=== PATIENT | male | born 1990 | race Caucasian/White ===

== ENCOUNTER 2018-02-16 19:00 | Emergency (ER) | payer MEDICAID ==
[~2018-02-16] VITALS: Ht 182.9 cm; Wt 69.3 kg
[2018-02-16 19:03] VITALS: BP 136/92
== END 2018-02-16 20:51 | disposition home or self-care (01) ==
LOC: ED 20:15
DX: S42.202A Unspecified fracture of upper end of left humerus, initial encounter for closed fracture (principal); F17.200 Nicotine dependence, unspecified, uncomplicated; V00.131A Fall from skateboard, initial encounter; Y93.51 Activity, roller skating (inline) and skateboarding; Y92.89 Other specified places as the place of occurrence of the external cause; Y99.8 Other external cause status
CPT/HCPCS: 29105; 99284

== ENCOUNTER 2018-02-19 13:32 | Emergency (ER) | payer MEDICAID ==
[~2018-02-19] VITALS: Ht 182.9 cm; Wt 70.0 kg
[2018-02-19 13:36] VITALS: BP 142/88
[2018-02-19] MEDS ORDERED: HYDR-3240 PO (14:37)
== END 2018-02-19 14:55 | disposition home or self-care (01) ==
LOC: ED 14:50
DX: S42.402D Unspecified fracture of lower end of left humerus, subsequent encounter for fracture with routine healing (principal); V00.131D Fall from skateboard, subsequent encounter
CPT/HCPCS: 99281

== ENCOUNTER 2019-02-09 23:54 | Emergency (ER) | payer MEDICAID ==
[~2019-02-09] VITALS: Ht 182.9 cm; Wt 73.0 kg
[~2019-02-09 23:54] MED LIST: HYDR-3240 PO
[2019-02-09 23:57] VITALS: BP 130/90
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
[2019-02-10] MEDS ORDERED: HYDR10TA4 PO (00:07)
== END 2019-02-10 01:09 | disposition home or self-care (01) ==
LOC: ED 02-10 00:06
DX: S50.812A Abrasion of left forearm, initial encounter (principal); F10.120 Alcohol abuse with intoxication, uncomplicated; F17.200 Nicotine dependence, unspecified, uncomplicated; F32.9 Major depressive disorder, single episode, unspecified; F41.9 Anxiety disorder, unspecified; X83.8XXA Intentional self-harm by other specified means, initial encounter; Y93.89 Activity, other specified; Y92.89 Other specified places as the place of occurrence of the external cause; Y99.8 Other external cause status
CPT/HCPCS: 99283

== ENCOUNTER 2019-03-31 22:46 | Inpatient (IN) | payer MEDICAID ==
[~2019-03-31] VITALS: Ht 182.9 cm; Wt 78.9 kg
[~2019-03-31 22:46] MED LIST changes: +HYDR10TA4 PO
[2019-03-31] MEDS ORDERED: SODIUM CHLORIDE FLUSH 10ML SYR IVF ONE (23:00)
--- NOTE | 2019-03-31 23:04 | NUR ---
DR WINSTON CHECKED RT ARM LACERATION WITH ARTERIAL BLEEDING TOURNIQUET WAS APPLIED VSS STABLE PT IS STILL AAOX4 ABLE TO ANSWER EXPLAINED WHAT HAPPENED TONIGHT DR WINSTON CALLED VASCULAR SURGEON
[2019-03-31] MEDS ORDERED: CEFAZOLIN PMX 1GM/50ML 50 ML ONE (23:10)
[2019-03-31] MEDS ORDERED: DIPH,PERTUSS(ACELL),TET VAC/PF 0.5 ML IM-VACC ONE ×2 (23:11→23:30)
[2019-03-31 23:12] LABS: BASOPHILS # (AUTO) 0.05 x10^3/uL (0-0.1); BASOPHILS % (AUTO) 0 % (0-1); EOSINOPHILS # (AUTO) 0.66 x10^3/uL (0-0.4); EOSINOPHILS % (AUTO) 5 % (1-7); LYMPHOCYTES # (AUTO) 4.12 x10^3/uL (1-3.4); LYMPHOCYTES % (AUTO) 28 % (22-44); MD NO; MEAN CORPUSCULAR HGB CONC 34.1 g/dL (33.2-36.2); MEAN CORPUSCULAR VOLUME 93.9 fL (81-97); MONOCYTES # (AUTO) 0.89 x10^3/uL (0.2-0.8); MONOCYTES % (AUTO) 6 % (2-9); NEUTROPHILS # (AUTO) 8.91 x10^3/uL (1.8-6.8); NEUTROPHILS % (AUTO) 61 % (42-75); PLATELET COUNT 391 x10^3/uL (130-400); RED BLOOD COUNT 5.22 x10^6/uL (4.38-5.82); RED CELL DISTRIBUTION WIDTH 12.9 % (9.4-14.8)
--- NOTE | 2019-03-31 23:19 | NUR ---
GIVEN TDAP AND LITER OF BOLUS PER MD PT IS STILL AWAKE VSS INTACT
[2019-03-31 23:25] LABS: ANION GAP 11 mmol/L (5-15); CALCIUM 8.3 mg/dL (8.5-10.1); CHLORIDE 108 mmol/L (98-107)
[2019-03-31 23:26] LABS: CREATININE 1.13 mg/dL (0.7-1.3)
[2019-03-31] MEDS ORDERED: CEFAZOLIN PMX 1GM/50ML 50 ML IVPB ONE (23:30)
[2019-03-31] MEDS ORDERED: CEFAZOLIN 2,000 MG in SODIUM CHLORIDE 0.9% 50 ML IV ONE (23:30)
[2019-03-31] MEDS ORDERED: SODIUM CHLORIDE 0.9% 1,000ML IVBOLUS ONE (23:30)
[2019-04-01] MEDS ORDERED: hydrALAzine 20 MG/ML, 1ML IVPush PRN
[2019-04-01] MEDS ORDERED: THROMBIN 20,000 UNIT VIAL TP ONE (00:03)
--- NOTE | 2019-04-01 00:04 | NUR ---
DR BERNARD SURGEON WAS IN ASSESSED PT'S WOUND SITES. OBTAINED CONSENT BY 2 PERSONS SIGN D/T PT'S VERBAL AGREEMENT D/T PT WAS UNABLE TO HOLD PEN GIVEN IV ABX BEFORE TRANSFER PT TO OR GIVEN REPORT TO [facility] ACCOUNT EXECUTIVERASHAUN LINARES WAS INTACT TIME FOR TRNASFER
[2019-04-01] MEDS ORDERED: FENTANYL PF 250 MCG/5ML ONE (00:24)
[2019-04-01] MEDS ORDERED: MIDAZOLAM 1 MG/ML, 2ML ONE (00:24)
[2019-04-01] MEDS ORDERED: MEPERIDINE/PF 25MG/0.5ML IVPush PRN (01:00)
[2019-04-01] MEDS ORDERED: LABETALOL 5MG/ML, 20ML IV PRN (01:00)
[2019-04-01] MEDS ORDERED: ONDANSETRON 2MG/ML, 2ML IV PRN (01:00)
[2019-04-01] MEDS ORDERED: MORPHINE SULFATE 4 MG/ML, 1ML IVPush PRN (01:00)
[2019-04-01] MEDS ORDERED: FENTANYL PF 100 MCG/2ML IV PRN (01:00)
[2019-04-01] MEDS ORDERED: PROMETHAZINE 12.5 MG SUPP PR PRN (01:00)
[2019-04-01] MEDS ORDERED: hydrALAzine 20 MG/ML, 1ML IV PRN (01:00)
[2019-04-01] MEDS ORDERED: OXYcodone 5 MG/5 ML ORAL.SOL UDC PO PRN (01:00)
[2019-04-01] MEDS ORDERED: ONDANSETRON ODT 8 MG PO PRN (01:00)
[2019-04-01] MEDS ORDERED: PROMETHAZINE 25 MG/ML, 1ML IM PRN ×2 (01:00)
[2019-04-01] MEDS ORDERED: PROMETHAZINE 25 MG SUPP PR PRN (01:00)
[2019-04-01] MEDS ORDERED: HYDROmorphone 2 MG/ML, 1ML IVPush PRN (01:00)
[2019-04-01] MEDS ORDERED: PROMETHAZINE 25 MG/ML, 1ML IV PRN (01:00)
[2019-04-01] MEDS ORDERED: BACITRACIN OINT 500U/GM, 15 GM ONE (02:00)
[2019-04-01] MEDS ORDERED: BACITRACIN ZINC OINT 500U/GM, 0.9 GM TP ONE (02:08)
[2019-04-01] MEDS ORDERED: GLYCOPYRROLATE 0.2MG/1ML, 5ML ONE (02:09)
[2019-04-01] MEDS ORDERED: CEFAZOLIN 1,000 MG ONE (02:09)
[2019-04-01] MEDS ORDERED: SUCCINYLCHOLINE 20 MG/ML, 10ML ONE (02:09)
[2019-04-01] MEDS ORDERED: NEOSTIGMINE 1 MG/ML, 10ML ONE (02:09)
[2019-04-01] MEDS ORDERED: PROPOFOL 10 MG/ML, 20ML ONE (02:09)
[2019-04-01] MEDS ORDERED: FENTANYL PF 100 MCG/2ML ONE (02:23)
[2019-04-01] MEDS ORDERED: OXYcodone 5 MG/5 ML ORAL.SOL UDC ONE (02:24)
[2019-04-01] MEDS ORDERED: LORazepam 2 MG/ML, 1ML ONE (02:44)
[2019-04-01] MEDS ORDERED: LORazepam 2 MG/ML, 1ML IVPush PRN (03:00)
[2019-04-01] MEDS: morphine SULFATE 10 MG/ML, 1ML IVPush PRN ×3 (03:49→21:57)
[2019-04-01] MEDS: LORazepam 1MG TABLET PO PRN (04:04)
[2019-04-01] MEDS: SODIUM CHLORIDE 0.9% 1,000 ML IV SCH ×2 (04:07→14:35)
[2019-04-01 04:13] VITALS: BP 140/97
[2019-04-01 06:35] VITALS: BP 133/80
[2019-04-01 07:25] LABS: ALANINE AMINOTRANSFERASE 20 U/L (12-78); ALBUMIN 3.1 g/dL (3.4-5.0); ANION GAP 6 mmol/L (5-15); CALCIUM 7.3 mg/dL (8.5-10.1); CHLORIDE 109 mmol/L (98-107); CREATININE 0.62 mg/dL (0.7-1.3)
[2019-04-01 07:28] LABS: ALKALINE PHOSPHATASE 79 U/L (45-117); BILIRUBIN,TOTAL 0.7 mg/dL (0.2-1.0); TOTAL PROTEIN 5.4 g/dL (6.4-8.2)
[2019-04-01 07:33] LABS: BASOPHILS # (AUTO) 0.12 x10^3/uL (0-0.1); BASOPHILS % (AUTO) 1 % (0-1); EOSINOPHILS # (AUTO) 0.19 x10^3/uL (0-0.4); EOSINOPHILS % (AUTO) 1 % (1-7); LYMPHOCYTES # (AUTO) 2.98 x10^3/uL (1-3.4); LYMPHOCYTES % (AUTO) 21 % (22-44); MD NO; MEAN CORPUSCULAR HEMOGLOBIN 31.3 pg (27.5-34.5); MEAN CORPUSCULAR HGB CONC 33.5 g/dL (33.2-36.2); MEAN CORPUSCULAR VOLUME 93.7 fL (81-97); MEAN PLATELET VOLUME 6.9 fL (7.4-10.4); MONOCYTES # (AUTO) 0.91 x10^3/uL (0.2-0.8); MONOCYTES % (AUTO) 6 % (2-9); NEUTROPHILS # (AUTO) 10.22 x10^3/uL (1.8-6.8); NEUTROPHILS % (AUTO) 71 % (42-75); PLATELET COUNT 295 x10^3/uL (130-400); RED CELL DISTRIBUTION WIDTH 13.1 % (9.4-14.8)
[2019-04-01 13:10] VITALS: BP 138/89
[2019-04-01 20:11] VITALS: BP 143/94
[2019-04-02] MEDS: SODIUM CHLORIDE 0.9% 1,000 ML IV SCH ×2 (00:18→10:26)
[2019-04-02] MEDS: LORazepam 1MG TABLET PO PRN (00:18)
[2019-04-02 01:58] VITALS: BP 139/91
[2019-04-02] MEDS: morphine SULFATE 10 MG/ML, 1ML IVPush PRN (05:02)
[2019-04-02 05:53] LABS: CALCIUM 7.7 mg/dL (8.5-10.1); CHLORIDE 107 mmol/L (98-107)
[2019-04-02 05:54] LABS: BASOPHILS # (AUTO) 0.12 x10^3/uL (0-0.1); BASOPHILS % (AUTO) 1 % (0-1); EOSINOPHILS % (AUTO) 5 % (1-7); LYMPHOCYTES # (AUTO) 2.43 x10^3/uL (1-3.4); LYMPHOCYTES % (AUTO) 22 % (22-44); MD NO; MEAN CORPUSCULAR HGB CONC 33.9 g/dL (33.2-36.2); MEAN CORPUSCULAR VOLUME 94.4 fL (81-97); MEAN PLATELET VOLUME 7.1 fL (7.4-10.4); MONOCYTES # (AUTO) 0.86 x10^3/uL (0.2-0.8); MONOCYTES % (AUTO) 8 % (2-9); NEUTROPHILS # (AUTO) 7.01 x10^3/uL (1.8-6.8); NEUTROPHILS % (AUTO) 64 % (42-75); PLATELET COUNT 238 x10^3/uL (130-400)
[2019-04-02 05:55] LABS: ANION GAP 4 mmol/L (5-15); CREATININE 0.51 mg/dL (0.7-1.3)
[2019-04-02 06:40] VITALS: BP 145/92
[2019-04-02 11:32] LABS: AMPHETAMINE SCREEN, URINE Negative (Negative); BARBITURATE SCREEN, URINE Negative (Negative); BENZODIAZEPINE SCREEN, URINE Negative (Negative); CANNABINOID SCREEN, URINE Negative (Negative); COCAINE SCREEN, URINE Negative (Negative); METHADONE SCREEN, URINE Negative (Negative); OPIATE SCREEN, URINE Positive (Negative)
[2019-04-02] MEDS ORDERED: HYDROcodone/APAP 5/325 TABLET ONE (12:20)
[2019-04-02] MEDS ORDERED: HYDROcodone/APAP 5/325 TABLET PO PRN (12:30)
[2019-04-02 13:05] VITALS: BP 139/85
[2019-04-02 13:58] VITALS: BP 143/89
[2019-04-04] MEDS ORDERED: FLEXERIL PO (08:03)
[2019-04-04] MEDS ORDERED: OLAN2.5T3 PO (08:03)
[2019-04-04] MEDS ORDERED: BUSP5TAB2 PO (08:03)
== END 2019-04-02 15:50 | disposition home or self-care (01) | DRG 909 ==
LOC: ED 23:25 → EDIP 23:57 → 4NOR 04-01 03:35 → DCLOUNGE 04-02 15:40
PROVIDERS: ADMIT Family Medicine; ATTEND Family Medicine
PROC: 03QB0ZZ Repair Right Radial Artery, Open Approach (ICD-10-PCS; principal; 2019-03-31 23:45)
DX: S55.111A Laceration of radial artery at forearm level, right arm, initial encounter (principal); D72.829 Elevated white blood cell count, unspecified; F10.10 Alcohol abuse, uncomplicated; F15.10 Other stimulant abuse, uncomplicated; Z59.0 Homelessness; Z91.19 Patient's noncompliance with other medical treatment and regimen; S51.811A Laceration without foreign body of right forearm, initial encounter; S61.511A Laceration without foreign body of right wrist, initial encounter; X58.XXXA Exposure to other specified factors, initial encounter; Y93.89 Activity, other specified; Y92.89 Other specified places as the place of occurrence of the external cause; Y99.8 Other external cause status
CPT/HCPCS: 36415; 80048; 80053; 80307; 82040; 85025; 86850; 86900; 90715; 93005; G0378; J0690; J2250; J2704; J2710; J3010; J0330; J2270; J7030

== ENCOUNTER 2019-09-23 19:15 | Emergency (ER) | payer MEDICAID ==
[~2019-09-23] VITALS: Ht 182.9 cm; Wt 77.6 kg
[~2019-09-23 19:15] MED LIST changes: +BUSP5TAB2 PO; +FLEXERIL PO; +OLAN2.5T3 PO
[2019-09-23 19:44] VITALS: BP 146/97
--- NOTE | 2019-09-23 19:58 | NUR ---
PT. AMBULATORY TO ROOM FROM LOBBY AT THIS TIME.
== END 2019-09-23 20:27 | disposition home or self-care (01) ==
LOC: ED 20:10
DX: R53.83 Other fatigue (principal); Z72.89 Other problems related to lifestyle
CPT/HCPCS: 99281

== ENCOUNTER 2020-02-14 12:06 | Emergency (ER) | payer SELFPAY ==
[~2020-02-14] VITALS: Ht 182.9 cm; Wt 73.1 kg
[~2020-02-14 12:06] MED LIST changes: +HYDR-2995 PO; -HYDR10TA4 PO
[2020-02-14 12:18] VITALS: BP 112/73
--- NOTE | 2020-02-14 12:33 | NUR ---
PT C/O NOT BEING ABLE TO DEAL WITH LIFE AT THIS TIME. DENIES SI. HAS BEEN USING METH FOR THE LAST WEEK AND 7 BEERS DAILY "FOREVER". PT SITTING EDGE OF BED, FIGITY AND ANXIOUS. MD AT BEDSIDE FOR ASSESSMENT. AWAITING ORDERS AT THIS TIME.
[2020-02-14] MEDS ORDERED: LORazepam 1MG TABLET ONE (12:38)
--- NOTE | 2020-02-14 12:40 | NUR ---
ATIVAN ADMIN PER DEC. DIET TRAY ORDERED.
--- NOTE | 2020-02-14 12:45 | NUR ---
DIET BOBO DELIVERED, PT APPRECIATIVE.
[2020-02-14] MEDS ORDERED: LORazepam 1MG TABLET PO ONE (13:00)
--- NOTE | 2020-02-14 13:23 | NUR ---
PT LAYING BACK ON GURNEY. JAMES. PT STATES HE FEELS A LITTLE MORE RELAXED.
--- NOTE | 2020-02-14 14:05 | NUR ---
PT SLEEPING ON GURNEY. RESP EVEN AND UNLABORED. JACOB.
== END 2020-02-14 14:48 | disposition home or self-care (01) ==
LOC: ED 12:30
DX: F10.10 Alcohol abuse, uncomplicated (principal); F15.10 Other stimulant abuse, uncomplicated; F17.200 Nicotine dependence, unspecified, uncomplicated
CPT/HCPCS: 99283

== ENCOUNTER 2020-02-15 18:08 | Emergency (ER) | payer SELFPAY ==
[~2020-02-15] VITALS: Ht 182.9 cm; Wt 72.1 kg
--- NOTE | 2020-02-15 19:01 | NUR ---
PT TO ED FOR HELP QUITTING METH AND GETTING BACK ON HIS FEET. PT CALM AND COOPERATIVE. PT IN GOWN. BELONGINGS BAGGED IN 2 BAGS AND PLACED WITH SITTER FOR TIME BEING. EDPA PORTIA TO BS FOR ASSESSMENT. PT IS HIGH SUICIDE RISK AND SITTER IS AT DOORWAY FOR CONTINUOUS MONITORING. ROOM CLEARED MUCH POSSIBLE. AWAITING ORDERS.
[2020-02-15 19:20] LABS: BASOPHILS # (AUTO) 0.09 x10^3/uL (0-0.1); BASOPHILS % (AUTO) 1 % (0-1); EOSINOPHILS % (AUTO) 12 % (1-7); LYMPHOCYTES # (AUTO) 2.39 x10^3/uL (1-3.4); LYMPHOCYTES % (AUTO) 31 % (22-44); MD NO; MEAN CORPUSCULAR HEMOGLOBIN 32.8 pg (27.5-34.5); MEAN CORPUSCULAR HGB CONC 34.5 g/dL (33.2-36.2); MEAN CORPUSCULAR VOLUME 95.1 fL (81-97); MEAN PLATELET VOLUME 7.6 fL (7.4-10.4); MONOCYTES # (AUTO) 0.67 x10^3/uL (0.2-0.8); MONOCYTES % (AUTO) 9 % (2-9); NEUTROPHILS # (AUTO) 3.62 x10^3/uL (1.8-6.8); NEUTROPHILS % (AUTO) 47 % (42-75); PLATELET COUNT 256 x10^3/uL (130-400); RED BLOOD COUNT 4.95 x10^6/uL (4.38-5.82); RED CELL DISTRIBUTION WIDTH 12.3 % (9.4-14.8)
--- NOTE | 2020-02-15 19:24 | NUR ---
PT AMB TO RR WITH STEADY GAIT WITH THIS RN TO PROVIDE URINE SAMPLE. SAMPLE COLLECTED AND WALKED TO LAB.
[2020-02-15 19:32] LABS: ALANINE AMINOTRANSFERASE 38 U/L (12-78); ALBUMIN 3.8 g/dL (3.4-5.0); ANION GAP 7 mmol/L (5-15); CALCIUM 7.9 mg/dL (8.5-10.1); CHLORIDE 108 mmol/L (98-107); CREATININE 0.78 mg/dL (0.7-1.3); SALICYLATE LEVEL 2.8 mg/dL (2.8-20.0)
[2020-02-15 19:42] LABS: AMPHETAMINE SCREEN, URINE Positive (Negative); BARBITURATE SCREEN, URINE Negative (Negative); BENZODIAZEPINE SCREEN, URINE Negative (Negative); CANNABINOID SCREEN, URINE Negative (Negative); COCAINE SCREEN, URINE Negative (Negative); METHADONE SCREEN, URINE Negative (Negative); OPIATE SCREEN, URINE Negative (Negative)
[2020-02-15 19:42] LABS: ALKALINE PHOSPHATASE 67 U/L (45-117); BILIRUBIN,TOTAL 0.7 mg/dL (0.2-1.0); TOTAL PROTEIN 6.8 g/dL (6.4-8.2)
[2020-02-15 20:23] VITALS: BP 116/68
== END 2020-02-15 20:25 ==
LOC: ED 20:19
DX: F10.10 Alcohol abuse, uncomplicated (principal); F15.10 Other stimulant abuse, uncomplicated; Z72.9 Problem related to lifestyle, unspecified; Y90.9 Presence of alcohol in blood, level not specified
CPT/HCPCS: 36415; 80053; 80307; 84443; 85025; 99283

== ENCOUNTER 2020-02-20 07:50 | Emergency (ER) | payer MEDICAID, OTHER ==
[~2020-02-20] VITALS: Ht 182.9 cm; Wt 75.2 kg
[2020-02-20 08:06] VITALS: BP 122/69
== END 2020-02-20 09:09 | disposition home or self-care (01) ==
LOC: ED 09:00
DX: S30.810A Abrasion of lower back and pelvis, initial encounter (principal); X58.XXXA Exposure to other specified factors, initial encounter; Y93.89 Activity, other specified; Y92.89 Other specified places as the place of occurrence of the external cause; Y99.8 Other external cause status
CPT/HCPCS: 99282

== ENCOUNTER 2020-03-04 12:05 | Emergency (ER) | payer MEDICAID ==
[~2020-03-04] VITALS: Ht 182.9 cm; Wt 72.5 kg
[2020-03-04 12:05] VITALS: BP 141/88
--- NOTE | 2020-03-04 12:21 | NUR ---
PT BIB [facility] FOR WANTING TO DETOX FROM ALCOHOL. PT HAS BEEN TO [facility] FOR [facility] BUT [facility] NOT ACC[facility]PT PT. PT REPORTS HIS LAST DRINK WAS AN EARTHQUAKE AT 3 AM. PT DENIES SI OR HI.
[2020-03-04 12:54] LABS: BASOPHILS # (AUTO) 0.03 x10^3/uL (0-0.1); BASOPHILS % (AUTO) 0 % (0-1); EOSINOPHILS # (AUTO) 0.64 x10^3/uL (0-0.4); EOSINOPHILS % (AUTO) 10 % (1-7); LYMPHOCYTES # (AUTO) 1.81 x10^3/uL (1-3.4); LYMPHOCYTES % (AUTO) 28 % (22-44); MD NO; MEAN CORPUSCULAR HEMOGLOBIN 32.5 pg (27.5-34.5); MEAN CORPUSCULAR VOLUME 95.5 fL (81-97); MEAN PLATELET VOLUME 7.2 fL (7.4-10.4); MONOCYTES # (AUTO) 0.41 x10^3/uL (0.2-0.8); MONOCYTES % (AUTO) 6 % (2-9); NEUTROPHILS # (AUTO) 3.53 x10^3/uL (1.8-6.8); NEUTROPHILS % (AUTO) 55 % (42-75); PLATELET COUNT 240 x10^3/uL (130-400); RED BLOOD COUNT 5.51 x10^6/uL (4.38-5.82); RED CELL DISTRIBUTION WIDTH 12.9 % (9.4-14.8)
[2020-03-04 13:05] LABS: ALANINE AMINOTRANSFERASE 39 U/L (12-78); ALBUMIN 3.6 g/dL (3.4-5.0); ANION GAP 7 mmol/L (5-15); CHLORIDE 107 mmol/L (98-107); CREATININE 0.82 mg/dL (0.7-1.3)
[2020-03-04 13:07] LABS: ALKALINE PHOSPHATASE 88 U/L (45-117); BILIRUBIN,TOTAL 0.8 mg/dL (0.2-1.0)
[2020-03-04] MEDS ORDERED: QUETIAPINE 25MG TABLET ONE (13:07)
[2020-03-04 13:17] LABS: AMPHETAMINE SCREEN, URINE Negative (Negative); BARBITURATE SCREEN, URINE Negative (Negative); BENZODIAZEPINE SCREEN, URINE Negative (Negative); CANNABINOID SCREEN, URINE Negative (Negative); COCAINE SCREEN, URINE Negative (Negative); METHADONE SCREEN, URINE Negative (Negative); OPIATE SCREEN, URINE Negative (Negative)
--- NOTE | 2020-03-04 13:21 | NUR ---
AFTER MEDICATING PT WITH SEROQUEL, PT ELOPED. CECILY PSYCH NAUTICAL INSTRUMENT MECHANIC AWARE.
[2020-03-04] MEDS ORDERED: NALTREXONE HCL 50 MG TABLET PO ONE (13:30)
[2020-03-04] MEDS ORDERED: QUETIAPINE 25MG TABLET PO ONE (13:30)
== END 2020-03-04 13:23 | disposition left against medical advice (07) ==
LOC: ED 13:12
DX: F23 Brief psychotic disorder (principal); F22 Delusional disorders; F32.9 Major depressive disorder, single episode, unspecified
CPT/HCPCS: 36415; 80053; 80307; 85025; 99283

== ENCOUNTER 2020-07-15 12:35 | Emergency (ER) | payer MEDICAID ==
[~2020-07-15] VITALS: Ht 185.4 cm; Wt 75.0 kg
[2020-07-15 12:49] VITALS: BP 149/97
--- NOTE | 2020-07-15 14:29 | NUR ---
OPERATIONS MANAGER ASSISTANT: PT TO ROOM FROM LOBBY
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
[2020-07-15] MEDS ORDERED: DIPH,PERTUSS(ACELL),TET VAC/PF 0.5 ML IM-VACC ONE ×2 (14:58→15:00)
[2020-07-15] MEDS ORDERED: LIDOCAINE 1%-EPI 1:100K, 20ML ONE (14:58)
[2020-07-15] MEDS ORDERED: LIDOCAINE 1%-EPI 1:100K, 20ML SQ ONE (15:00)
[2020-07-15] MEDS ORDERED: NEOSPORIN OINT. PKT 1 PACKET ONE (15:29)
== END 2020-07-15 15:59 | disposition home or self-care (01) ==
LOC: ED 13:23
DX: S90.851A Superficial foreign body, right foot, initial encounter (principal); W22.8XXA Striking against or struck by other objects, initial encounter; Y93.89 Activity, other specified; Y92.89 Other specified places as the place of occurrence of the external cause; Y99.8 Other external cause status
CPT/HCPCS: 90471; 90715; 99284

== ENCOUNTER 2021-02-15 18:08 | Emergency (ER) | payer MEDICAID ==
[~2021-02-15] VITALS: Ht 177.8 cm; Wt 74.5 kg
[~2021-02-15 18:08] MED LIST changes: +HYDR-2214 PO; -HYDR-3240 PO
[2021-02-15] MEDS ORDERED: IBUPROFEN 600 MG TABLET PO ONE (18:30)
[2021-02-15] MEDS ORDERED: IBUPROFEN 600 MG TABLET ONE (20:09)
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
--- NOTE | 2021-02-15 20:30 | NUR ---
PT GIVEN ICE PACK FOR FOOT
[2021-02-15 21:13] VITALS: BP 126/72
--- NOTE | 2021-02-15 21:15 | NUR ---
AWAITING ROCKER BOOT FOR PT. VSS.
--- NOTE | 2021-02-15 21:40 | NUR ---
PT LEFT WITHOUT DISCHARGE PAPERWORK. EDUCATED PT ON FOLLOW UP OUTPATIENT, PT DECLINED TEACHING AND CONTINUED WALKING OUT OF ROOM TOWARD LOBBY. Addendum: 02/15/21 at 2142 by [place] PT HAD ROCKER SHOE ON PRIOR TO DISCHARGE.
== END 2021-02-15 21:47 | disposition home or self-care (01) ==
LOC: ED 21:09
DX: S92.515A Nondisplaced fracture of proximal phalanx of left lesser toe(s), initial encounter for closed fracture (principal); S90.32XA Contusion of left foot, initial encounter; Z59.0 Homelessness; X58.XXXA Exposure to other specified factors, initial encounter; Y93.89 Activity, other specified; Y92.89 Other specified places as the place of occurrence of the external cause; Y99.8 Other external cause status
CPT/HCPCS: 99283; 99406

== ENCOUNTER 2021-03-24 21:52 | Emergency (ER) | payer MEDICAID ==
[~2021-03-24] VITALS: Ht 182.9 cm; Wt 71.5 kg
--- NOTE | 2021-03-24 21:57 | NUR ---
CALLED FROM LOBBY, NO ANSWER
[2021-03-24 22:02] VITALS: BP 150/99
--- NOTE | 2021-03-24 22:30 | NUR ---
PT RESTING IN CHAIR IN VEIW OF NURSES STATION, NO COMPLAINTS AT THIS TIME, AWAITING ERP EVAL
--- NOTE | 2021-03-24 23:08 | NUR ---
PT STATED HE IS NOT USED TO BEING HOMELESS AND WAS TIRED OF WALKING, RESOURCE LIST GIVEN FOR FOLLOW UP, DENIED BEING AN IMMEDIATE RISK TO SELF OR OTHERS
== END 2021-03-24 23:14 | disposition home or self-care (01) ==
LOC: ED 23:08
DX: R45.851 Suicidal ideations (principal); Z72.9 Problem related to lifestyle, unspecified; F17.210 Nicotine dependence, cigarettes, uncomplicated
CPT/HCPCS: 99284; 99406

== ENCOUNTER 2021-06-20 14:00 | Emergency (ER) | payer MEDICAID ==
[~2021-06-20] VITALS: Ht 185.4 cm; Wt 81.0 kg
[2021-06-20] MEDS ORDERED: LIDOCAINE 1%-EPI 1:100K, 20ML ONE (14:14)
[2021-06-20] MEDS ORDERED: LIDOCAINE 1%-EPI 1:100K, 20ML INFIL ONE (14:30)
[2021-06-20 14:38] VITALS: BP 129/75
--- NOTE | 2021-06-20 15:32 | NUR ---
back from [place]
--- NOTE | 2021-06-20 15:43 | NUR ---
pt sleeping, no s/s of distress
== END 2021-06-20 16:37 | disposition left against medical advice (07) ==
LOC: ED 14:30
DX: S01.112A Laceration without foreign body of left eyelid and periocular area, initial encounter (principal); S04.52XA Injury of facial nerve, left side, initial encounter; Z20.822 Contact with and (suspected) exposure to COVID-19; X58.XXXA Exposure to other specified factors, initial encounter; Y93.89 Activity, other specified; Y92.89 Other specified places as the place of occurrence of the external cause; Y99.8 Other external cause status
CPT/HCPCS: 12014; 70450; 87426; 99284